=== PATIENT | female | born 1985 | race Caucasian/White ===

== ENCOUNTER 2016-08-22 11:13 | Day surgery (SDC) | payer BC ==
[2016-08-21 10:57] LABS: HEMATOCRIT 40.2 % (36.0-48.0); HEMOGLOBIN 13.7 g/dL (12.0-16.0)
[2016-08-21 11:12] LABS: BUN (BLOOD UREA NITROGEN) 6 MG/DL (6-23); CALCIUM, SERUM 9.1 MG/DL (8.5-10.4); CHLORIDE, SERUM 106 MMOL/L (96-112); CO2 (CARBON DIOXIDE) 26 MMOL/L (24-34); CREATININE 0.61 MG/DL (0.55-1.02); GFR AFRICAN AMERICAN 138 ML/MIN (>=60); GFR NON AFRICAN AMERICAN 119 ML/MIN (>=60); GLUCOSE, SERUM 86 MG/DL (60-99); SODIUM, SERUM 140 MMOL/L (135-148)
--- NOTE | ~2016-08-22 | OP ---
Record Of Operation [facility] [address] [place]. [address] NAME: CORINNA MCKENZIE : 81 STATUS : [facility]#: [id number] AGE: 31 ADM/REG DATE : 08/22/16 MR#: [id number] REPORT SERV DATE: 08/22/16 DICTATED BY: DOROTHY COOPER DATE: 08/22/16 REPORT STATUS : Draft TRANSCRIBED BY: MODMel DATE: 08/22/16 DATE OF PROCEDURE: 08/22/2016 PREOPERATIVE DIAGNOSES: 1. Bilateral chronic frontal sinusitis. 2. Bilateral chronic ethmoid sinusitis. 3. Bilateral chronic maxillary sinusitis. 4. Bilateral chronic sphenoid sinusitis. POSTOPERATIVE DIAGNOSES: 1. Bilateral chronic frontal sinusitis. 2. Bilateral chronic ethmoid sinusitis. 3. Bilateral chronic maxillary sinusitis. 4. Bilateral chronic sphenoid sinusitis. PROCEDURE: 1. Bilateral total ethmoidectomy. 2. Bilateral maxillary sinusectomy. 3. Bilateral sphenoidectomy, with tissue removal. 4. Bilateral frontal sinusectomy, with tissue removal. 5. Use of cranial navigation system, extradural. INDICATIONS: Corinna Mckenzie is a 31-year-old female with a long history of chronic sinusitis and nasal dyspnea. She has had nasal polyps and has been treated on many occasions with oral antibiotics, without permanent resolution of her symptoms. Her CT scan showed opacification of all four sinuses on both sides and a significant polyp burden. I counseled her about the risks, benefits, and alternatives of this procedure. The risks include, but are not limited to pain, bleeding, infection, and scarring. I quoted her a 15% risk for the need for revision sinus surgery in the future. She voiced an understanding of those risks and signed a consent form. PROCEDURE IN DETAIL: Corinna was brought to the operating room and positioned on the table in a supine manner. General endotracheal anesthesia was induced. The table was rotated 180 degrees. The patient was prepped and draped in the usual fashion. The sinus navigation system was initialized according to protocol and appeared to be functioning normally. The surgical sales representative was in the room when we did this and it seem to be working fine throughout the case. 0.5 x 3 cotton pledgets containing the 1:1000 epinephrine solution were placed into the nasal cavities bilaterally. These were left in place for three minutes and then with the 0- degree sinus endoscope viewed from the TV monitor, we placed a pack up into the sphenoid ethmoid recess on the left side and into the middle meatus on the left side. I did the same thing on the right side after taking out the first set of packs. After about three minutes, I removed the packs from the left side. We attempted to get a good visualization of the sphenoid sinus first, but there was a fair Record Of Operation [address] [place]. [address] NAME: CORINNA MCKENZIE : 81 STATUS : [facility] PAT#: [id number] AGE: 31 ADM/REG DATE : 08/22/16 MR#: [id number] REPORT SERV DATE: 08/22/16 DICTATED BY: DOROTHY COOPER DATE: 08/22/16 REPORT STATUS : Draft TRANSCRIBED BY: SCHUYLER DATE: 08/22/16 bit of polyp burden up in the sphenoethmoid recess and rather than doing that, we decided to enter the sphenoid through the ethmoid and defer that for later in the case. The polyps in the middle meatus were debrided with the straight sinus shaver blade. The uncinate process was back elevated toward surgeon with the sinus probe. A slot was cut into this inferiorly with the back biting forceps, and I then used the backbiter to come up the uncinate until we had that almost resected and used the Porfirio-Cut forceps to take out the uncinate process in its entirety. The natural ostia of the maxillary sinus were identified with a sinus probe and enlarged with the probe. This was trimmed with a Porfirio-Cut forceps and the sinus shaver. Total ethmoidectomy was performed preserving the middle and superior turbinates, the fovea ethmoidalis and the lamina papyracea. Once we got past the bulla ethmoidalis and entered the posterior ethmoids, we spent some time removing significant posterior ethmoid polyp burden. Once we were at the sphenoid rostrum, this was entered through the posterior-most ethmoid air cell and enlarged significantly. We also used the sinus navigation system for landmarks throughout this procedure. Care was taken to go back into the sphenoethmoid recess and identify the natural ostia of the sphenoid sinus and enlarged significantly. We had a sphenoid sinus ostia that was about 14 mm from top to bottom at the end of this procedure. The tissue within the sphenoid sinus was also removed with the Porfirio-Cut forceps and trimmed a bit with the sinus shaver. We then switched to the 30-degree sinus endoscope and the curved sinus shaver blade and the curved suction and came along the roof of the ethmoid from back to front, removing extraneous tissue and extra air cells and finally getting up into the agger nasi air cells, which were removed in their entirety. Once we had this cleared out, we had excellent visualization up into the frontal sinus on that side and polyps were removed from the frontal sinus on the left and this was thoroughly irrigated. The frontal sinus mucosal disease that remained was judged to be reversible in nature. Following this, we spent a little time taking out polyps from the maxillary sinus again and then thoroughly irrigated all of this side and placed sinus packs into the sphenoid, ethmoid, frontal, and maxillary sinuses, as well we worked on the right side. The packs were taken out on the right side and similar procedures were performed on the right, as were performed on the left. After placing the packs on the right side, we went back to the left and took the packs out of that side and thoroughly irrigated that out again without identifying any further bleeding. The Propel sinus stent was placed into the ethmoid position and Surgiflo was placed into the sinus cavities, and we waited approximately three minutes for the identification of further bleeding. When no further bleeding was seen, I irrigated out most of the Surgiflo and suctioned along the floor of the nose all the way back to the nasopharynx. I performed the same procedures on the right side as well. After suctioning the nose one last time, I placed a drip pad. The patient was returned to anesthesia control. She was extubated in the operating room and moved to the recovery room in good condition. FINDINGS: 1. Estimated blood loss was 50 mL. 2. Total fluids given were 1000 mL of Ringer's lactate. 3. Significant polypoid disease in all eight sinuses. 4. The patient's vision was normal in the recovery room at the end of the procedure. 5. We had good access and visualization into the frontal sinus bilaterally. 6. The patient's vision was normal in the recovery room at the end of the procedure. Record Of Operation [facility] [address] [place]. [address] NAME: CORINNA MCKENZIE : 81 STATUS : [facility]#: [id number] AGE: 31 ADM/REG DATE : 08/22/16 MR#: [id number] REPORT SERV DATE: 08/22/16 DICTATED BY: DOROTHY COOPER DATE: 08/22/16 REPORT STATUS : Draft TRANSCRIBED BY: SCHUYLER DATE: 08/22/16 MARC/SCHUYLER Dorothy Cooper M.D. / [id number] CC: Kimberley Cruz GENNA LEETA *
[~2016-08-22 11:13] MED LIST: PRIN5 PO; SPRINTEC PO
== END 2016-08-22 17:16 | disposition home or self-care (01) ==
LOC: SDC 11:13
PROVIDERS: Otolaryngology
PROC: 09TX4ZZ Resection of Left Sphenoid Sinus, Percutaneous Endoscopic Approach (ICD-10-PCS; 2016-08-22)
PROC: 09TW4ZZ Resection of Right Sphenoid Sinus, Percutaneous Endoscopic Approach (ICD-10-PCS; 2016-08-22)
PROC: 09BT4ZZ Excision of Left Frontal Sinus, Percutaneous Endoscopic Approach (ICD-10-PCS; 2016-08-22)
PROC: 09TV4ZZ Resection of Left Ethmoid Sinus, Percutaneous Endoscopic Approach (ICD-10-PCS; principal; 2016-08-22 13:15)
PROC: 09TU4ZZ Resection of Right Ethmoid Sinus, Percutaneous Endoscopic Approach (ICD-10-PCS; 2016-08-22 13:15)
DX: J33.9 Nasal polyp, unspecified (principal); J32.1 Chronic frontal sinusitis; J32.2 Chronic ethmoidal sinusitis; J32.0 Chronic maxillary sinusitis; J32.3 Chronic sphenoidal sinusitis; I10 Essential (primary) hypertension; Z91.040 Latex allergy status; Z79.52 Long term (current) use of systemic steroids; Z79.899 Other long term (current) drug therapy
CPT/HCPCS: 80048; 84703; 85014; 85018; 88304; 88305; 88312; 93005; A9270-GY; C2625; J0360; J2250; J2405; J2710; J3010